=== PATIENT | female | born 1970 | race Caucasian/White ===

== ENCOUNTER → 2016-11-16 | Outpatient (CLI) | payer OTHER ==
[~2016-11-16] MED LIST: ABILIFY PO; ACETAMINOPHEN PO; ACETAMINOPHEN-120 ML; AMOXICILLIN500 M1 PO; ARIXTRA2.5 MG/0.5 INJ; AUGMENTIN PO; BACITRACIN3.5 G1; BAYER ASPIRIN325 M1 PO; BENZONATATE PO; CAL CARB FORTE PO; CARAFATE1 G PO; CELEXA; CELEXA PO; COLACE PO; COUMADIN PO; DESYREL300 MG PO; DICLOFENAC; DICLOFENAC SODIUM PO; DICYCLOMINE HCL20 MG PO; DOXEPIN HCL50 MG PO; DOXYCYCLINE HY100 M3 PO; EFFEXOR PO; ESTRACE PO; FAMOTIDINE PO; FLEXERIL10 MG; FLEXERIL10 MG PO; HYDROCODON-ACE1 EAC7 PO; HYDROXYZINE HCL25 M1 DOB; HYDROXYZINE HCL25 M1 PO; HYDROXYZINE HCL50 MG PO; HYDROXYZPAM PO; KEFLEX500 MG PO; KETOPROFEN PO; LEXAPRO PO; LORTAB 10-5001 EACH PO; LORTAB 5/500 TA1 TA1; LORTAB 5/500 TA1 TA1 PO; LORTAB 7.5-5001 TAB PO; MELATONIN10 M1 PO; MILK OF MAGNESIA PO; NAPROSYN500 MG PO; NEURONTIN; NEURONTIN300 MG PO; NO MEDICATIONS; NORCO 10/3251 TAB PO; OXYCONTIN10 MG PO; PAROXETINE HCL10 MG PO; PEPCID PO; PEPCID40 MG PO; PERCOCET 5-3251 TAB PO; PERCOCET5/325; PERCOCET5/325 PO; PHENERGAN PO; PHENERGAN SUPP25 MG PR; PHENERGAN12.5 MG/SU RC; PHENERGAN25 M1; PHENERGAN25 M1 PO; PHENERGAN25 MG PO; PREDNISONE PO; PRILOSEC PO; PRILOSEC20 MG PO; PROZAC; PROZAC40 MG PO; REGLAN PO; TESSALON200 MG; TRAMADOL HCL50 M2 PO; TRAZODONE PO; ULTRAM PO; VIBRAMYCIN100 M1 PO; VICODIN 5/1 TAB 5/50 PO; VICODIN 5/500 T1 TAB PO; VISTARIL; ZOFRAN PO; [UNRECOGNIZED DRUG - OTHER]; [UNRECOGNIZED DRUG - OTHER]; [UNRECOGNIZED DRUG - REMARK]
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
== END | disposition home or self-care (01) ==
LOC: SMRI 13:45
DX: M54.12 Radiculopathy, cervical region (principal); M50.81 Other cervical disc disorders, high cervical region; M50.821 Other cervical disc disorders at C4-C5 level; M50.822 Other cervical disc disorders at C5-C6 level; M50.823 Other cervical disc disorders at C6-C7 level; M51.24 Other intervertebral disc displacement, thoracic region
CPT/HCPCS: 72141